=== PATIENT | female | born 1960 | race Caucasian/White ===

== ENCOUNTER 2018-12-21 05:55 | Emergency (ER) | payer SELFPAY ==
[~2018-12-21] VITALS: Ht 157.5 cm; Wt 59.1 kg
[2018-12-21 06:03] VITALS: Ht 157.5 cm; Wt 59.1 kg
[2018-12-21] MEDS ORDERED: SOD CHLORIDE 0.9% 1,000 ML IV STA (06:06)
[2018-12-21] MEDS ORDERED: ONDANSETRON 4 MG INJ IV STA (06:06)
[2018-12-21] MEDS ORDERED: morphine 4 MG/ML VIAL IV STA (06:06)
--- NOTE | 2018-12-21 07:28 | ERD ---
ER Documentation Chief Complaint Chief Complaint ABD PAIN WITH N/VX1DAY; DRANK OLIVE OIL TO "HELP THINGS MOVE" HPI This is a 58-year-old female with a history of hypertension and diabetes who presents to the emergency room for evaluation of abdominal pain. The patient states that she has been constipated for the past 3 days and she drank some all of oil to help with her constipation. She states that this did not work and she is having abdominal pain and cramping which she says is located all over her stomach. The patient states that she is has nausea and one episode of vomiting but denies any chest pain or shortness of breath or diaphoresis or diarrhea associated with her symptoms. ROS All systems reviewed and are negative except as per history of present illness. PMhx/Soc History of Surgery: Yes (RT BREAST TOTAL MASTECTOMY, BLADDER SX, BILATERAL FOOT SX) Anesthesia Reaction: No Hx Neurological Disorder: No Hx Respiratory Disorders: No Hx Cardiac Disorders: Yes (HTN, HLD) Hx Psychiatric Problems: No Hx Miscellaneous Medical Probl: Yes (BREAST CA) Hx Alcohol Use: No Hx Substance Use: No Hx Tobacco Use: No Smoking Status: Never smoker Physical Exam Vitals Vital Signs Date Temp Pulse Resp B/P (MAP) Pulse Ox O2 O2 Flow FiO2 Time Delivery Rate 12/21/18 97.9 91 19 132/82 100 06:03 (99) Physical Exam INITIAL VITAL SIGNS: Reviewed by me GENERAL: The patient is well developed and appropriate for usual state of health in no apparent distress HEENT: Pupils equal, round, and reactive to light. EOMI. There is no scleral icterus. NECK: C-spine is soft and supple, there is no meningismus. There is no cervical lymphadenopathy. LUNGS: Clear to auscultation bilaterally. There are no rales, wheezes or rhonchi. HEART: Regular rate and rhythm, no murmurs, clicks, rubs or gallops. ABDOMEN: Gastric tenderness to palpation, periumbilical to palpation, otherwise soft, non-tender, non-distended. There are bowel sounds in all four quadrants. No rebound or guarding. EXTREMITIES: There is no peripheral cyanosis or edema. No focal swelling or erythema. NEUROLOGICAL: The patient moves all four extremities with 5/5 strength. Cranial nerves II - XII are intact. Normal gait. Alert and oriented SKIN: There is no apparent rash or petechiae. HEME/LYMPHATIC: There is no evidence of excessive bruising or lymphedema. PSYCHIATRIC: The patient does not appear anxious or depressed. Result Diagram: 12/21/1846 12/21/1846 Results 24 hrs Laboratory Tests Test 12/21/18 06:41 12/21/18 06:46 Urine Color ASTON Urine Clarity CLOUDY Urine pH 5.0 Urine Specific [place] 1.030 Urine Ketones 1+ mg/dL Urine Nitrite NEGATIVE mg/dL Urine Bilirubin 1+ mg/dL Urine Urobilinogen 1+ mg/dL Urine Leukocyte Esterase NEGATIVE Sarah/ul Urine Microscopic RBC 16 /HPF Urine Microscopic WBC 10 /HPF Urine Squamous Epithelial Cells MODERATE /HPF Urine Calcium Oxalate Crystals MANY /HPF Urine Bacteria FEW /HPF Urine Hyaline Casts FEW /HPF Urine Mucus MANY /HPF Urine Hemoglobin 1+ mg/dL Urine Glucose 1+ mg/dL Urine Total Protein 3+ mg/dl White Blood Count 16.9 10^3/ul Red Blood Count 5.04 10^6/ul Hemoglobin 15.0 g/dl Hematocrit 43.6 % Mean Corpuscular Volume 86.5 fl Mean Corpuscular Hemoglobin 29.8 pg Mean Corpuscular Hemoglobin Concent 34.4 g/dl Red Cell Distribution Width 13.7 % Platelet Count 375 10^3/UL Mean Platelet Volume 9.9 fl Immature Granulocytes % 0.400 % Neutrophils % 82.5 % Lymphocytes % 12.0 % Monocytes % 4.1 % Eosinophils % 0.8 % Basophils % 0.2 % Nucleated Red Blood Cells % 0.0 /100WBC Immature Granulocytes # 0.060 10^3/ul Neutrophils # 13.9 10^3/ul Lymphocytes # 2.0 10^3/ul Monocytes # 0.7 10^3/ul Eosinophils # 0.1 10^3/ul Basophils # 0.0 10^3/ul Nucleated Red Blood Cells # 0.0 10^3/ul Sodium Level 137 mmol/L Potassium Level 3.7 mmol/L Chloride Level 100 mmol/L Carbon Dioxide Level 24 mmol/L Anion Gap 13 Blood Urea Nitrogen 15 mg/dl Creatinine 0.63 mg/dl Est Glomerular Filtrat Rate mL/min > 60 mL/min Glucose Level 271 mg/dl Calcium Level 9.6 mg/dl Total Bilirubin 0.4 mg/dl Direct Bilirubin 0.00 mg/dl Indirect Bilirubin 0.4 mg/dl Aspartate Amino Transf (AST/SGOT) 24 IU/L Alanine Aminotransferase (ALT/SGPT) 23 IU/L Alkaline Phosphatase 122 IU/L Total Protein 7.9 g/dl Albumin 4.5 g/dl Globulin 3.40 g/dl Albumin/Globulin Ratio 1.32 Lipase 83 U/L Current Medications Medications Dose Sig/Rut Start Time Status Last (Trade) Ordered Route PRN Stop Time Admin Dose Reason Admin Sodium 1,000 ml @ Q1H STAT 12/21/18 DC 12/21/18 Chloride 1,000 mls/hr IV 06:06 06:45 12/21/18 07:05 Morphine 4 mg ONCE STAT 12/21/18 DC 12/21/18 Sulfate IV 06:06 06:45 (morphine) 12/21/18 06:07 Ondansetron 4 mg ONCE STAT 12/21/18 DC 12/21/18 HCl (Zofran IV 06:06 06:45 Inj) 12/21/18 06:07 Procedures/MDM CT abdomen pelvis without contrast: 1. Mild free fluid along the anterior posterior uterus and right lower abdomen without localized fluid collections suggest abscess. Negative free air. 2. Diverticulosis of the sigmoid colon. No CT evidence of appendicitis or divert stretch that no CT evidence of diverticulitis or appendicitis. 3. Prominent nondilated fluid filled loops of mid to distal small bowel remainder of the small bowel unremarkable. This is nonspecific and may represent ileus. Enteritis cannot be excluded. 4. No calcified urinary calculi or obstructive uropathy. 5. Periumbilical and bilateral inguinal fat-containing hernias without herniated bowel or strangulation. This 58-year-old female presents to the ER for evaluation of abdominal pain. The patient states that she drank all of oil to help with constipation however that did not work for her. The patient came to the emergency room for evaluation of her symptoms and on my exam the patient did have tenderness to palpation of the epigastric region and periumbilical regions. The patient did have bowel sounds in all 4 quadrant however she did appear to be slightly uncomfortable and was given IV fluids, Zofran, and morphine. A CT of the abdomen and pelvis was obtained and does show some mild free fluid along the posterior aspect of the uterus however there is no abscess there is no free air and no signs of perforation. On my reevaluation the patient is sitting comfortably and states that she is feeling much better. The patient will benefit from outpatient stool softeners and will be discharged home with a prescription for MiraLAX, and Colace. She was given strict return precautions and she does feel comfortable with her plan of care. The patient does have a leukocytosis however I do feel that this is likely reactive secondary to her pain and vomiting as opposed to an infectious cause at this time. Differential diagnoses entertained was broad with potential high acuity. Patient has been evaluated for appendicitis, cholecystitis, and other high risk medical and surgical causes of abdominal pain. Ultimately the patient's evaluation is nondiagnostic. Based on the patient's lack of risk factors, as well as the patient's clinical, laboratory, and imaging data, the patient appears to be low risk for these high risk causes of abdominal pain. Departure Diagnosis: Primary Impression: Abdominal pain Additional Impressions: Constipation Uncontrolled diabetes mellitus Condition: Stable LUIS SHELDON DO Dec 21, 2018 07:28
[2018-12-21] MEDS ORDERED: POLY17PO6 PO (07:29)
[2018-12-21] MEDS ORDERED: DOCU-144 PO (07:29)
[2018-12-21 08:00] VITALS: BP 142/73; PULSE 82; RESP 17
== END 2018-12-21 08:08 | disposition home or self-care (01) ==
LOC: E/R 05:55
DX: R10.9 Unspecified abdominal pain (principal); I10 Essential (primary) hypertension; E11.65 Type 2 diabetes mellitus with hyperglycemia; K59.00 Constipation, unspecified; R11.2 Nausea with vomiting, unspecified; Z85.3 Personal history of malignant neoplasm of breast
CPT/HCPCS: 36415; 74176; 80053; 81001; 83690; 85025; 96374; 96375; 99285; J2270; J2405; J7030

== ENCOUNTER 2019-06-10 00:29 | Emergency (ER) | payer BC ==
[~2019-06-10] VITALS: Ht 157.5 cm; Wt 84.5 kg
[~2019-06-10 00:29] MED LIST: DOCU-144 PO; POLY17PO6 PO
[2019-06-10 00:36] VITALS: Ht 157.5 cm; Wt 84.5 kg
[2019-06-10] MEDS ORDERED: KETOROLAC 30 MG INJ IV STA (00:53)
[2019-06-10] MEDS ORDERED: SOD CHLORIDE 0.9% 1,000 ML IV STA (00:53)
--- NOTE | 2019-06-10 04:44 | ERD ---
ER Documentation Chief Complaint Chief Complaint Bilateral leg pain & tightness x 2 hours HPI Patient is a 58-year-old female with hypertension, diabetes, and high cholesterol who presents with cramping. The patient says that she feels cramping in the bilateral lower extremities. She has back pain and abdominal pain as well. Her symptoms started today at 10 PM. She has had these symptoms in the past as well. Upon review of old medical records the patient one previous visit in December 2018. The patient does not remember the name of her primary doctor. ROS All systems reviewed and are negative except as per history of present illness. Medications Home Meds Active Scripts Polyethylene Glycol* (Miralax*) 17 Gm Powd.pack, 17 GM PO DAILY, #7 Prov:LUIS SHELDON DO 12/21/18 Docusate Sodium* (Colace*) 100 Mg Capsule, 100 MG PO TID, #30 CAP Prov:LUSI SHELDON DO 12/21/18 Allergies Allergies: Coded Allergies: No Known Allergy (Unverified , 06/10/19) PMhx/Soc Positive for hypertension, diabetes, and high cholesterol History of Surgery: No Anesthesia Reaction: No Hx Neurological Disorder: No Hx Respiratory Disorders: No Hx Cardiac Disorders: No Hx Psychiatric Problems: No Hx Miscellaneous Medical Probl: No Hx Alcohol Use: No Hx Substance Use: No Hx Tobacco Use: No Smoking Status: Never smoker FmHx Family History: diabetes Physical Exam Vitals Vital Signs Date Temp Pulse Resp B/P (MAP) Pulse Ox O2 O2 Flow FiO2 Time Delivery Rate 06/10/19 67 16 94/66 (75) 97 Room Air 03:44 06/10/19 66 16 104/68 96 Room Air 02:18 (80) 06/10/19 98.6 84 17 125/68 98 00:36 (87) Physical Exam Const: No acute distress Head: Atraumatic Eyes: Normal Conjunctiva ENT: Normal External Ears, Nose and Mouth. Neck: Full range of motion. No meningismus. Resp: Clear to auscultation bilaterally Cardio: Regular rate and rhythm, no murmurs Abd: Soft, non tender, non distended. Normal bowel sounds Skin: No petechiae or rashes Back: No midline or flank tenderness Ext: No cyanosis, or edema, 2+ DP pulses bilaterally Neur: Awake and alert Psych: Normal Mood and Affect Result Diagram: 06/10/19 0130 06/10/19 0130 Results 24 hrs Laboratory Tests Test 06/10/19 01:30 06/10/19 02:09 White Blood Count 10.4 10^3/ul Red Blood Count 4.50 10^6/ul Hemoglobin 13.6 g/dl Hematocrit 39.7 % Mean Corpuscular Volume 88.2 fl Mean Corpuscular Hemoglobin 30.2 pg Mean Corpuscular Hemoglobin Concent 34.3 g/dl Red Cell Distribution Width 14.0 % Platelet Count 343 10^3/UL Mean Platelet Volume 9.5 fl Immature Granulocytes % 0.300 % Neutrophils % 52.4 % Lymphocytes % 38.2 % Monocytes % 6.4 % Eosinophils % 2.4 % Basophils % 0.3 % Nucleated Red Blood Cells % 0.0 /100WBC Immature Granulocytes # 0.030 10^3/ul Neutrophils # 5.5 10^3/ul Lymphocytes # 4.0 10^3/ul Monocytes # 0.7 10^3/ul Eosinophils # 0.3 10^3/ul Basophils # 0.0 10^3/ul Nucleated Red Blood Cells # 0.0 10^3/ul Sodium Level 137 mmol/L Potassium Level 3.4 mmol/L Chloride Level 99 mmol/L Carbon Dioxide Level 28 mmol/L Anion Gap 10 Blood Urea Nitrogen 15 mg/dl Creatinine 0.64 mg/dl Est Glomerular Filtrat Rate mL/min > 60 mL/min Glucose Level 168 mg/dl Calcium Level 9.6 mg/dl Total Bilirubin 0.3 mg/dl Direct Bilirubin 0.00 mg/dl Indirect Bilirubin 0.3 mg/dl Aspartate Amino Transf (AST/SGOT) 31 IU/L Alanine Aminotransferase (ALT/SGPT) 43 IU/L Alkaline Phosphatase 105 IU/L Total Protein 7.8 g/dl Albumin 4.5 g/dl Globulin 3.30 g/dl Albumin/Globulin Ratio 1.36 Lipase 123 U/L Urine Color STRAW Urine Clarity CLEAR Urine pH 6.0 Urine Specific [place] 1.008 Urine Ketones NEGATIVE mg/dL Urine Nitrite NEGATIVE mg/dL Urine Bilirubin NEGATIVE mg/dL Urine Urobilinogen NEGATIVE mg/dL Urine Leukocyte Esterase NEGATIVE Sarah/ul Urine Microscopic RBC 0 /HPF Urine Microscopic WBC 1 /HPF Urine Bacteria FEW /HPF Urine Hemoglobin 2+ mg/dL Urine Glucose NEGATIVE mg/dL Urine Total Protein NEGATIVE mg/dl Current Medications Medications Dose Sig/Rut Start Time Status Last (Trade) Ordered Route PRN Stop Time Admin Dose Reason Admin Sodium 1,000 ml @ Q1H STAT 06/10/19 DC 06/10/19 Chloride 1,000 mls/hr IV 00:53 02:01 06/10/19 01:52 Ketorolac 30 mg ONCE STAT 06/10/19 DC 06/10/19 Tromethamine IV 00:53 02:02 (Toradol) 06/10/19 00:54 Potassium 40 meq ONCE STAT 06/10/19 UNV Chloride PO 04:38 (Klor-Con 20) 06/10/19 04:39 Procedures/MDM Patient is a 58-year-old female who presents with bilateral leg cramping. There is no swelling or signs of infection. Laboratory studies show a mild hypokalemia with a potassium of 3.4. The patient was given normal saline 1 L bolus for possible dehydration and the patient was given potassium by mouth for potassium repletion. The patient will be discharged but will need to follow-up closely with her primary doctor within 1 week. She was provided with copies of her laboratory studies prior to discharge. She can return for any worsening symptoms. I doubt DVT. Departure Diagnosis: Primary Impression: Cramping of feet Additional Impression: Hypokalemia Condition: Fair Patient Instructions: Muscle Spasm, Hypokalemia Referrals: Your doctor Additional Instructions: Llame al doctor davidson best (Referral Sources) MAANA y melodie jaime HELLEN PARA DENTRO DE JAIME SEMANA. Dgale a la secretaria que nosotros le instruimos hacer esta hellen.Avise o llame si galvin condicin se empeora antes de la hellen. RE ANTONY MD Jun 10, 2019 04:44
[2019-06-10] MEDS ORDERED: POTASSIUM CHLORIDE (SR) 20 MEQ TAB PO ONE (04:46)
[2019-06-10 04:55] VITALS: BP 108/69; PULSE 88; RESP 19
== END 2019-06-10 04:58 | disposition home or self-care (01) ==
LOC: E/R 00:29
DX: M79.604 Pain in right leg (principal); I10 Essential (primary) hypertension; E11.9 Type 2 diabetes mellitus without complications; M79.605 Pain in left leg; E87.6 Hypokalemia
CPT/HCPCS: 36415; 80053; 81001; 82330; 83690; 85025; 96374; 99284; J1885; J7030; Z7610